=== PATIENT | male | born 1930 | race Caucasian/White ===

== ENCOUNTER 2017-02-21 18:15 | Emergency (ER) | payer OTHER ==
[2017-02-21 18:55] LABS: BASOPHIL 0.1 % (0-2); EOSINOPHIL 0.2 % (0-7); HCT 33.9 % (42.0-52.0); HGB 11.3 g/dl (13.2-18.0); LYMPHOCYTE 13.2 % (15-48); MCH 27.6 pg (25.0-31.0); MCHC 33.3 g/dL (32.0-36.0); MCV 82.7 fL (78.0-100.0); MONOCYTE 16.3 % (0-12); MPV 8.7 fL (6.0-9.5); NEUTROPHIL 70.2 % (41-80); PLT 144 K/uL (150-400); WBC 8.3 K/uL (4.0-10.5)
[2017-02-21 19:02] LABS: LACTIC ACID 2.6 mmol/L (0.5-2.2)
[2017-02-21 19:06] LABS: ALBUMIN 3.3 g/dL (3.4-4.8); BILIRUBIN - TOTAL 0.7 mg/dL (0.1-1.0); CREATININE 1.9 mg/dL (0.7-1.2); GLOBULIN (CALCULATION) 3.3 g/dL (2.2-4.2); POTASSIUM 4.4 mmol/L (3.5-5.1); TOTAL PROTEIN 6.6 g/dL (6.4-8.3)
[2017-02-21 19:09] LABS: TROPONIN T 0.111 ng/mL
[2017-02-21 19:21] LABS: INR 6.64 (0.9-1.2); PROTHROMBIN TIME 56.9 SECONDS (11.7-14.0); PTT 101.7 SECONDS (23.2-31.4)
[2017-02-21 21:25] LABS: BILIRUBIN NEGATIVE (NEGATIVE); BLOOD 1+ Ery/uL (NEGATIVE); CLARITY CLEAR (CLEAR); COLOR YELLOW (YELLOW); GLUCOSE (U) TRACE mg/dL (NORMAL); KETONE (U) NEGATIVE (NEGATIVE); LEUKOCYTES NEGATIVE Leu/uL (NEGATIVE); NITRITE NEGATIVE (NEGATIVE); PROTEIN 3+ mg/dL (NEGATIVE); UROBILINOGEN 0.2 mg/dL (0.2-1.0); pH 5.5 (5.0-9.0)
[2017-02-21 21:30] LABS: SQUAMOUS EPITHELIAL CELLS RARE; URINARY RBC RARE
[2017-02-22 06:19] LABS: CLARITY (FLUID) TURBID; COLOR (FLUID) RED
== END 2017-02-21 21:50 | disposition other institution (70) ==
LOC: FER 18:15
PROVIDERS: Emergency Medicine
DX: I21.4 Non-ST elevation (NSTEMI) myocardial infarction (principal); M25.462 Effusion, left knee; T45.515A Adverse effect of anticoagulants, initial encounter; J18.9 Pneumonia, unspecified organism; I13.0 Hypertensive heart and chronic kidney disease with heart failure and stage 1 through stage 4 chronic kidney disease, or unspecified chronic kidney disease; E11.22 Type 2 diabetes mellitus with diabetic chronic kidney disease; N18.3 Chronic kidney disease, stage 3 (moderate); I50.9 Heart failure, unspecified; I48.91 Unspecified atrial fibrillation; R82.90 Unspecified abnormal findings in urine; Z79.899 Other long term (current) drug therapy; Z79.4 Long term (current) use of insulin; Z79.01 Long term (current) use of anticoagulants; Z95.0 Presence of cardiac pacemaker; Z95.5 Presence of coronary angioplasty implant and graft
CPT/HCPCS: 36415; 71010; 73560; 80053; 81001; 83605; 83880; 84484; 84550; 85025; 85610; 85730; 87040; 87070; 87205; 89051; 89060; 93005; J0456